=== PATIENT | female | born 1950 | race American Indian/Alaskan Native ===

== ENCOUNTER 2022-04-02 09:22 | Outpatient (CLI) | payer MEDICARE ==
--- NOTE | 2022-04-02 10:42 | XRay Report ---
CHEST 2 VIEWS INDICATION / CLINICAL INFORMATION: J18.9. Cough FINDINGS: SUPPORT DEVICES: None. HEART / MEDIASTINUM: No significant abnormality. LUNGS / PLEURA: Scattered airspace density within the left lung base persists may represent mild resi dual pneumonia. The lungs are hyperexpanded with emphysematous change. The right lung is grossly kala r. Signer Name: Charly Corral MD Signed: 04/02/2022 10:38 AM Workstation Name: [id number]
== END 2022-04-02 09:23 | disposition home or self-care (01) ==
LOC: XRAY 09:22
PROVIDERS: ATTEND Family Medicine
DX: J43.9 Emphysema, unspecified (principal); J18.9 Pneumonia, unspecified organism
CPT/HCPCS: 71046